=== PATIENT | female | born 1965 | race Caucasian/White ===

== ENCOUNTER 2022-11-05 19:34 | Emergency (ER) | payer OTHER ==
[~2022-11-05] VITALS: Ht 149.9 cm; Wt 48.5 kg
[2022-11-05 19:34] VITALS: BP 78/50; PULSE 89; RESP 15; TEMP 98.6; O2SAT 98
[2022-11-05] MEDS: NACL 0.9% 1,000 ML IV ONE ×2 (20:00→23:30)
[2022-11-05 20:46] LABS: BASOPHILS % (AUTO) 0.7 % (0.0-2.0); EOSINOPHILS % (AUTO) 0.4 % (0.0-4.0); HEMATOCRIT 32.9 % (36-48); HEMOGLOBIN 11.1 g/dL (12.0-16.0); LYMPHOCYTES # (AUTO) 0.9 K/uL (2.5-16.5); LYMPHOCYTES % (AUTO) 18.4 % (20.5-51.1); MEAN CORPUSCULAR HEMOGLOBIN 31 pg (27-31); MEAN CORPUSCULAR HGB CONC 34 g/dL (33-37); MEAN CORPUSCULAR VOLUME 91.5 fL (80-94); MONOCYTES # (AUTO) 0.4 K/uL (0.8-1.0); MONOCYTES % (AUTO) 8.6 % (1.7-9.3); NEUTROPHILS # (AUTO) 3.6 K/uL (1.8-7.7); NEUTROPHILS % (AUTO) 71.9 % (42.2-75.2); PLATELET COUNT (AUTO) 179 K/uL (140-450); RED CELL DISTRIBUTION WIDTH 23.7 % (11.6-13.7); WHITE BLOOD COUNT (AUTO) 5.1 K/uL (4.8-10.8)
[2022-11-05 21:01] LABS: ANION GAP 13.3 (8-16); CALCIUM 6.8 mg/dL (8.5-10.1); CARBON DIOXIDE 24.3 mmol/L (21-32); TOTAL BILIRUBIN 0.4 mg/dL (0.0-1.0); TOTAL PROTEIN, SERUM 6.1 g/dL (6.4-8.2)
[2022-11-05 21:05] LABS: POTASSIUM 2.6 mmol/L (3.5-5.1)
[2022-11-05 21:06] LABS: LIPASE 809 U/L (73-393)
[2022-11-05] MEDS: KCL 20 MEQ IN 100 mL PREMIX 200 ML IV ONE (21:34)
[2022-11-05 21:47] LABS: APPEARANCE,URINE CLEAR (CLEAR); BILIRUBIN,URINE NEGATIVE (NEGATIVE); BLOOD, URINE NEGATIVE (NEGATIVE); COLOR,URINE YELLOW (YELLOW); LEUKOCYTE ESTERASE ,URINE TRACE (NEGATIVE); NITRITE, URINE NEGATIVE (NEGATIVE); PH,URINE 5.5 (5.0-9.0); PROTEIN,URINE NEGATIVE (NEGATIVE); UGLUCOSE NEGATIVE (NEGATIVE)
[2022-11-05 21:49] LABS: RBC,URINE 0-5 /HPF (0-5); WBC,URINE 0-5 /HPF (0-5)
[2022-11-05 21:50] LABS: BACTERIA,URINE 2+ /HPF (None Seen); MUCUS,URINE 1+ /LPF (None Seen); SQUAMOUS EPITHELIAL CELL,UR 20-50 /LPF (0-3 (FEW)); TRICHOMONAS,URINE None Seen /HPF (None Seen); YEAST,URINE None Seen /HPF (None Seen)
[2022-11-06 01:36] LABS: ALBUMIN 2.8 g/dL (3.4-5.0); ANION GAP 13.1 (8-16); CALCIUM 6.5 mg/dL (8.5-10.1); CARBON DIOXIDE 21.8 mmol/L (21-32); CREATININE 1.5 mg/dL (0.6-1.3); TOTAL BILIRUBIN 0.4 mg/dL (0.0-1.0); TOTAL PROTEIN, SERUM 5.8 g/dL (6.4-8.2)
[2022-11-06 01:38] LABS: POTASSIUM 2.9 mmol/L (3.5-5.1)
[2022-11-06] MEDS: FOLIC ACID 1 MG TAB PO ONE ×2 (03:07→03:10)
[2022-11-06] MEDS: POTASSIUM CHLORIDE 10 MEQ TABER PO ONE ×2 (03:11→03:18)
[2022-11-06] MEDS: MAG SULF 2000 MG/WATER PREMIX 50 ML IV ONE ×2 (03:13→03:19)
[2022-11-06] MEDS: ONDANSETRON 4 MG ODT PO ONE (03:21)
[2022-11-06] MEDS: ONDANSETRON 4 MG/2 ML VIAL IVP ONE (03:22)
[2022-11-06] MEDS: THIAMINE 200 MG/2 ML VIAL IM ONE ×2 (03:23)
[2022-11-06 04:41] VITALS: O2SAT 98
[2022-11-06] MEDS: LORazepam 1 MG TAB PO ONE (04:54)
[2022-11-06 05:14] LABS: ALBUMIN 2.9 g/dL (3.4-5.0); ANION GAP 9.4 (8-16); CALCIUM 6.8 mg/dL (8.5-10.1); CREATININE 1.3 mg/dL (0.6-1.3); POTASSIUM 3.4 mmol/L (3.5-5.1); TOTAL BILIRUBIN 0.4 mg/dL (0.0-1.0)
[2022-11-06 07:47] VITALS: BP 91/58; PULSE 83; RESP 16; TEMP 96.8
== END 2022-11-06 07:40 | disposition short-term general hospital (02) ==
LOC: MED 19:34
DX: R55 Syncope and collapse (principal); R03.0 Elevated blood-pressure reading, without diagnosis of hypertension; I10 Essential (primary) hypertension; Z88.5 Allergy status to narcotic agent; Z20.822 Contact with and (suspected) exposure to COVID-19; Z79.899 Other long term (current) drug therapy
CPT/HCPCS: 36415; 71045; 80053; 81001; 83690; 83880; 84484; 85025; 85379; 87086; 87426; 93005; 96361; 96365; 96366; 96367; 96372; 99291; 99292; J3411; J3475; J3480; J7030; Q0162